=== PATIENT | male | born 1965 | race Asian ===

== ENCOUNTER 2020-05-25 05:48 | Day surgery (SDC) | payer BC ==
[~2020-05-25] VITALS: Ht 165.1 cm; Wt 69.6 kg
[~2020-05-25 05:48] MED LIST: NORVASC 10MG10 MG PO
[2020-05-25 06:09] VITALS: BP 116/81; PULSE 79; TEMP 98.2
[2020-05-25] MEDS ORDERED: TOPROL XL 25MG25 MG PO (06:12)
[2020-05-25] MEDS ORDERED: ASPIRIN 81M81 MG/TA2 PO (06:13)
[2020-05-25 07:35] VITALS: BP 115/73; PULSE 79; TEMP 97.8
--- NOTE | 2020-05-25 07:35 | NUR ---
PATIENT TRANSPORTED PER CART ACCOMPANIED BY ENDO NURSE TO [facility]. PATIENT AWAKE. PATIENT AMBULATED FROM CART TO CHAIR WITH STEADY GAIT WITH 1 ASSIST. MONITORS APPLIED. VSS ON ROOM AIR. PATIENT DENIES DISCOMFORT AND NAUSEA. 0740 PATIENT GIVEN COFFEE AND MUFFIN. PATIENT GLAD TO GET EAT.
[2020-05-25 07:45] VITALS: BP 116/81; PULSE 86
--- NOTE | 2020-05-25 07:48 | NUR ---
VSS ON ROOM AIR. PATIENT TOLERATES MUFFIN AND COFFEE WITHOUT PROBLEMS. PATIENT DENIES DISCOMFORT AND NAUSEA. PATIENT STATES STILL ALITTLE FOGGY.
[2020-05-25 08:00] VITALS: BP 129/62; PULSE 82
--- NOTE | 2020-05-25 08:10 | NUR ---
VSS ON ROOM AIR. PATIENT TALKS WITH DR CERDA. QUESTIONS ANSWERED AND PATIENT VOICED UNDERSTANDING. IV SITE DC'D WITH CATHETER TIP INTACT. PRESSURE AND BANDAGE APPLIED. DISCHARGE INSTRUCTIONS GIVEN PER PACKET AND VERBALLY. QUESTIONS ANWSERED AND PATIENT VIOCED UNDERSTANDING. PATIENT CHANGES INTO STREET CLOTHES. 0815 DISCHARGED PER WHEEL CHAIR [facility] PATIENT BROTHER DRIVING.
[2020-05-25 08:15] VITALS: BP 130/79; PULSE 77
== END 2020-05-25 08:15 | disposition home or self-care (01) ==
LOC: SDCO 05:48
DX: Z12.11 Encounter for screening for malignant neoplasm of colon (principal); I10 Essential (primary) hypertension; Z87.891 Personal history of nicotine dependence; Z20.828 Contact with and (suspected) exposure to other viral communicable diseases
CPT/HCPCS: J2704; J7030